=== PATIENT | female | born 1970 | race Caucasian/White ===

== ENCOUNTER 2017-01-28 20:06 | Emergency (ER) | payer BC ==
[2017-01-28] MEDS ORDERED: Ketorolac 60 MG/2 ML SDV IM ONE (20:44)
[2017-01-28] MEDS ORDERED: Cyclobenzaprine 10 MG Tab PO ONE (20:44)
[2017-01-28] MEDS ORDERED: HYDROmorphone 1 MG/ML Syringe IM ONE (20:44)
--- NOTE | 2017-01-28 20:49 | EDM.PDOC ---
ED HPI GENERAL MEDICAL PROBLEM - General Chief Complaint: Back Pain or Injury Stated Complaint: BACK PAIN Time Seen by Provider: 01/28/17 20:35 Source of Information: Reports: Patient History Limitations: Reports: No Limitations - History of Present Illness INITIAL COMMENTS - FREE TEXT/NARRATIVE: Patient is a 46-year-old female who presents to the ED complaining of bilateral low back pain that started this past Sunday after picking up clothes off the floor. Patient felt a pop when doing so and experienced immediate pain to her low back. She's been experiencing increasing pain with movement and palpation. She intermittently has pain radiating down the left posterior aspect of her leg. She has intermittent numbness/tingling. She has no prior history of back injury or similar symptoms. Denies saddle anesthesia or incontinence to urine or stool. She has been utilizing ibuprofen and Tylenol, hot/cold compresses, gentle stretching, with minimal relief. In addition she's also experiencing mild pain with urination. She denies any fever/chills, nausea/vomiting, abdominal pain, abnormal vaginal discharge, or any additional complaints. Duration: Constant, Getting Worse, Waxing/Waning Location: Reports: Back (Bilateral low back) Quality: Reports: Ache, Sharp, Stabbing, Throbbing Severity: Severe Improves with: Reports: Rest Worsens with: Reports: Other (Palpation), Movement Context: Reports: Activity Associated Symptoms: Reports: No Other Symptoms Treatments SOFTWARE SYSTEMS ARCHITECT: Reports: Other (see below) (see HPI) Other Treatments SOFTWARE SYSTEMS ARCHITECT: Motrin 1200 800mg Lower Back Pain Score (Numeric/FACES): 6 - Related Data Allergies Allergy/AdvReac Type Severity Reaction Status Date / Time tramadol HCl [From [facility]] Allergy Rash Verified 01/28/17 20:18 Home Meds: Home Meds Albuterol [Ventolin HFA] 1 puff INH ASDIRECTED PRN 11/09/14 [History] Lisinopril/Hydrochlorothiazide [Lisinopril-Hctz 10-12.5 mg Tab] 1 tab PO DAILY 11/09/14 [History] buPROPion [Wellbutrin XL] 150 mg PO DAILY 11/09/14 [History] Acetaminophen [Tylenol] 325 mg PO Q4H PRN #50 tab 11/11/14 [Rx] Ibuprofen [Motrin] 800 mg PO Q6H PRN 01/28/17 [History] Acetaminophen/HYDROcodone [Palouse 325-5 MG] 1 tab PO Q6H PRN #15 tablet 01/29/17 [Rx] Cyclobenzaprine [Flexeril] 5 mg PO TID PRN #15 tablet 01/29/17 [Rx] Past Medical History HEENT History: Reports: None Cardiovascular History: Reports: None Respiratory History: Reports: Asthma Genitourinary History: Reports: None Neurological History: Reports: None Psychiatric History: Reports: Anxiety Endocrine/Metabolic History: Reports: None Hematologic History: Reports: None Immunologic History: Reports: None Oncologic (Cancer) History: Reports: None Dermatologic History: Reports: None - Infectious Disease History Infectious Disease History: Reports: None - Past Surgical History GI Surgical History: Reports: Cholecystectomy Female Surgical History: Reports: Section, Hysterectomy Other Female Surgeries/Procedures: c-sections x 4 Musculoskeletal Surgical History: Reports: None Social & Family History - Family History Family Medical History: Noncontributory - Tobacco Use Smoking Status *Q: Current Every Day Smoker Years of Tobacco use: 30 Packs/Tins Daily: 1 Used Tobacco, but Quit: Yes - Caffeine Use Caffeine Use: Reports: Coffee - Alcohol Use Days Per Week of Alcohol Use: 2 Number of Drinks Per Day: 3 Total Drinks Per Week: 6 - Recreational Drug Use Recreational Drug Use: No ED ROS GENERAL - Review of Systems Review Of Systems: ROS reveals no pertinent complaints other than HPI. ED EXAM,LOWER BACK PAIN/INJURY - Physical Exam Exam: See Below Exam Limited By: No Limitations General Appearance: Alert, WD/WN, Moderate Distress Ears: Hearing Grossly Normal Nose: Normal Inspection Throat/Mouth: Normal Voice, No Airway Compromise Neck: Normal Inspection, Supple Respiratory/Chest: No Respiratory Distress, Lungs Clear, Normal Breath Sounds, No Accessory Muscle Use, Chest Non-Tender Cardiovascular: Normal Peripheral Pulses, Regular Rate, Rhythm GI/Abdominal: Normal Bowel Sounds, Soft, Non-Tender, No Organomegaly, No Distention Back Exam: Normal Inspection, Decreased Range of Motion, Vertebral Tenderness ( L4-L5 and into the low back bilaterally. Pain along the SI joint bilaterally.), Other (No bruising, swelling, deformity, ecchymosis noted.) Extremities: Normal Inspection, Non-Tender, No Pedal Edema, Normal Capillary Refill Neurological: Alert, Normal Mood/Affect, Normal Dorsiflexion, Normal Plantar Flexion, No Motor/Sensory Deficits, Oriented x 3, Difficulty Walking (Secondary to pain). No: Straight Leg Raise (L), Straight Leg Raise (R) Psychiatric: Normal Affect, Normal Mood Skin Exam: Warm, Dry, Intact, Normal Color Course - Vital Signs Last Recorded V/S: Last Vital Signs Temp 98.3 F 01/29/17 00:13 Pulse 61 01/29/17 00:13 Resp 14 01/29/17 00:13 BP 127/75 01/29/17 00:13 Pulse Ox 94 L 01/29/17 00:13 - Orders/Labs/Meds Labs: Laboratory Tests 01/28/17 Range/Units 20:55 Urine Color Yellow (Yellow) Urine Appearance Cloudy H (Clear) Urine pH 7.0 (5.0-8.0) Ur Specific [place] 1.025 (1.005-1.030) Urine Protein 2+ H (Negative) Urine Glucose (UA) Negative (Negative) Urine Ketones Negative (Negative) Urine Occult Blood Negative (Negative) Urine Nitrite Negative (Negative) Urine Bilirubin Negative (Negative) Urine Urobilinogen 1.0 (0.2-1.0) Ur Leukocyte Esterase Negative (Negative) Urine RBC Not seen (0-5) /hpf Urine WBC 0-5 (0-5) /hpf Ur Epithelial Cells 5-10 H (0-5) /hpf Amorphous Sediment Many H (NOT SEEN) /hpf Urine Bacteria Few (FEW) /hpf Hyaline Casts 0-5 (0-5) /lpf Urine Mucus Not seen (FEW) /hpf Meds: Medications Discontinued Medications Generic Name Dose Route Start Last Admin Trade Name Shana PRN Reason Stop Dose Admin Hydrocodone Bitart/Acetaminophen 1 tab 01/29/17 00:02 01/29/17 00:11 Palouse 325-5 Mg PO 01/29/17 00:03 1 tab ONETIME ONE Administration Cyclobenzaprine HCl 10 mg 01/28/17 20:44 01/28/17 20:59 Flexeril PO 01/28/17 20:45 10 mg ONETIME ONE Administration Hydromorphone HCl 1 mg 01/28/17 20:44 01/28/17 21:00 Dilaudid IM 01/28/17 20:45 1 mg ONETIME ONE Administration Ketorolac Tromethamine 60 mg 01/28/17 20:44 01/28/17 21:04 Toradol IM 01/28/17 20:45 60 mg ONETIME ONE Administration - Re-Assessments/Exams Free Text/Narrative Re-Assessment/Exam: Ordered Dilaudid 1 mg IM, Flexeril 10 mg by mouth, and Toradol 60 mg IM. Will obtain a UA with a history of burning sensation with urination. Reassessment patient's pain has slightly decreased with the above therapies. Will discharge patient home with instructions as documented. 1200 Reassessment, patient's pain has increased due to long wait when a critical patient arrived in the ED. Will order Palouse 5-325 mg one tab by mouth. Will discharge patient home with instructions as document. Departure - Departure Time of Disposition: 00:04 Disposition: Home, Self-Care 01 Condition: Good Clinical Impression: Bilateral low back pain with left-sided sciatica Qualifiers: Chronicity: acute Qualified Code(s): M54.42 - Lumbago with sciatica, left side - Discharge Information Prescriptions: Acetaminophen/HYDROcodone [Palouse 325-5 MG] 1 tab PO Q6H PRN #15 tablet PRN Reason: Pain (Severe 7-10) Cyclobenzaprine [Flexeril] 5 mg PO TID PRN #15 tablet PRN Reason: Pain Instructions: Back Injury Prevention, [id number], Pain Medicine Instructions , [id number], Back Pain, Adult, [id number], Muscle Strain, [id number] Referrals: Selene James PA [Primary Care Provider] - Forms: ED Department Discharge, Return to Work/School Form Additional Instructions: No driving this evening since receiving a sedative medication while in the ED. Take Flexeril one tab 3 times a day for muscle spasms and pain. Take ibuprofen and Tylenol and activity fashion. For severe pain not managed with the above therapies take Palouse one tab every 6 hours. Do not take Tylenol while taking the Palouse. Utilize warm compresses as needed to the affected area to reduce pain. Refrain from any activities that cause worsening pain. Follow-up with your primary care provider for reevaluation in the next 3-5 days. Physical therapy may be of benefit to you. In addition MRI may be required. Return to ED if you develop any new or worsening symptoms as discussed.
[2017-01-29] MEDS ORDERED: Acetaminophen/HYDROcodone 325-5 MG Tab PO ONE (00:02)
[2017-01-29 00:15] VITALS: BP 127/75
== END 2017-01-29 00:28 | disposition home or self-care (01) ==
LOC: JD.ED 20:06
DX: M54.42 Lumbago with sciatica, left side (principal); J45.909 Unspecified asthma, uncomplicated; F41.9 Anxiety disorder, unspecified; F17.210 Nicotine dependence, cigarettes, uncomplicated; Z88.5 Allergy status to narcotic agent; Z79.899 Other long term (current) drug therapy; Z90.49 Acquired absence of other specified parts of digestive tract; Z90.710 Acquired absence of both cervix and uterus
CPT/HCPCS: 81001; 96372; 99283; A9270; J1170; J1885

== ENCOUNTER 2019-10-05 10:53 | Emergency (ER) | payer BC ==
[2019-10-05 11:11] VITALS: BP 136/80; PULSE 72
--- NOTE | 2019-10-05 11:25 | EDM.PDOC ---
ED HPI GENERAL MEDICAL PROBLEM - General Chief Complaint: Back Pain or Injury Stated Complaint: LEFT LEG PAIN/BACK PAIN Time Seen by Provider: 10/05/19 11:25 - History of Present Illness INITIAL COMMENTS - FREE TEXT/NARRATIVE: 49-year-old female presents the emergency room with low back pain radiating down her left leg. About 3-1/2 weeks ago the patient fell on some ice landing on her bottom. Had some mild discomfort in her back following this but managed to go to work, she does a lot of lifting at her place of employment. Then because of a family emergency had to take a very long car ride to [place] then to [place] and then back here and this really seemed to aggravate it. She was seen at a clinic in [place] where she was started on Flexeril 5 mg 1 or 2 as needed she usually took 1 or 2 in the morning. She was also given a shot that sounds like Toradol that helped significantly with her discomfort she was given a course of prednisone. She has significant left-sided back spasm that radiates down her buttocks down to her knee and occasionally she has pain that goes into her foot. She has had no loss of bowel or bladder control she does have some dysuria but no frequency. She is had no loss of bowel or bladder control. Lower Back Pain Score (Numeric/FACES): 10 - Related Data Allergies Allergy/AdvReac Type Severity Reaction Status Date / Time tramadol HCl [From [facility]] Allergy Rash Verified 10/05/19 11:12 Home Meds: Home Meds Lisinopril/Hydrochlorothiazide [Lisinopril-Hctz 10-12.5 mg Tab] 1 tab PO DAILY 11/09/14 [History] buPROPion [Wellbutrin XL] 150 mg PO DAILY 11/09/14 [History] Cyclobenzaprine [Flexeril] 1 - 2 tab PO Q8H PRN 10/05/19 [History] Cyclobenzaprine [Flexeril] 10 mg PO TID #15 tab 10/05/19 [Rx] Nitrofurantoin Macrocrystal [Nitrofurantoin] 50 mg PO QID #28 capsule 10/05/19 [ Rx] predniSONE [Prednisone] 40 mg PO DAILY 10/05/19 [History] Past Medical History HEENT History: Reports: Allergic Rhinitis Cardiovascular History: Reports: Hypertension Respiratory History: Reports: Asthma Gastrointestinal History: Reports: Hepatitis, Other (See Below) Other Gastrointestinal History: elevated LFTs, Hepatitis B Genitourinary History: Reports: None FICTION AND NONFICTION AUTHOR History: Reports: Other (See Below) Other FICTION AND NONFICTION AUTHOR History: galactorrhea, dysmenorrhea, menorrhagia Musculoskeletal History: Reports: Arthritis, Back Pain, Chronic, Other (See Below) Other Musculoskeletal History: left wrist ganglion cyst, muscle spasms Neurological History: Reports: Headaches, Chronic Psychiatric History: Reports: Anxiety, Depression Endocrine/Metabolic History: Reports: Hypothyroidism, Obesity/BMI 30+ Hematologic History: Reports: None Immunologic History: Reports: None Oncologic (Cancer) History: Reports: None Dermatologic History: Reports: None - Infectious Disease History Infectious Disease History: Reports: Hepatitis B - Past Surgical History Head Surgeries/Procedures: Reports: None GI Surgical History: Reports: Cholecystectomy Female Surgical History: Reports: Section, Hysterectomy, Tubal Ligation Oncologic Surgical History: Reports: None Dermatological Surgical History: Reports: None Social & Family History - Family History Family Medical History: Noncontributory - Tobacco Use Smoking Status *Q: Current Every Day Smoker Years of Tobacco use: 35 Packs/Tins Daily: 0.2 - Caffeine Use Caffeine Use: Reports: Coffee, Soda - Recreational Drug Use Recreational Drug Use: No - Living Situation & Occupation Living situation: Reports: , with Spouse, with Family (1 teenager) Occupation: Unemployed ED ROS GENERAL - Review of Systems Review Of Systems: See Below Constitutional: Reports: No Symptoms HEENT: Reports: No Symptoms Respiratory: Reports: No Symptoms Cardiovascular: Reports: No Symptoms GI/Abdominal: Reports: No Symptoms : Reports: Dysuria Musculoskeletal: Reports: Back Pain, Other (See history of present illness) ED EXAM,LOWER BACK PAIN/INJURY - Physical Exam Exam: See Below Exam Limited By: No Limitations General Appearance: Alert, Moderate Distress (The patient just cannot get comfortable) Head: Atraumatic, Normocephalic Neck: Normal Inspection, Supple, Non-Tender, Full Range of Motion Respiratory/Chest: No Respiratory Distress, Lungs Clear, Normal Breath Sounds Cardiovascular: Regular Rate, Rhythm, No Edema, No Murmur GI/Abdominal: Normal Bowel Sounds, Soft, Non-Tender Back Exam: Muscle Spasm, Other (She has marked spasm in the left paraspinous muscles. This radiates down her buttocks and down the back of her thigh stops at her knee. Attempted straight leg raises however she had significant discomfort in her low back and buttocks and down to her knee in the posterior muscles by 30 degrees. This did not seem to make the pain worse in her foot.). No: CVA Tenderness (R), Vertebral Tenderness Course - Vital Signs Last Recorded V/S: Last Vital Signs Temp 36.0 C L 10/05/19 11:07 Pulse 72 10/05/19 11:07 Resp 16 10/05/19 11:07 BP 136/80 10/05/19 11:07 Pulse Ox 100 10/05/19 11:07 - Orders/Labs/Meds Orders: Active Orders 24 hr Category Date Time Status Abdomen wo Cont [CT] Stat Exams 10/05/19 13:17 Taken CULTURE URINE [RM] Stat Lab 10/05/19 12:08 Received Acetaminophen/HYDROcodone [Alto 325-5 MG] Med 10/05/19 15:58 Once 1 tab PO ONETIME ONE fentaNYL [Sublimaze] Med 10/05/19 13:22 Active 50 mcg IVPUSH Q5M PRN Medication Orders Hydrocodone Bitart/Acetaminophen (Alto 325-5 Mg) 1 tab PO ONETIME ONE Stop: 10/05/19 15:59 Fentanyl (Sublimaze) 50 mcg IVPUSH Q5M PRN PRN Reason: Pain Last Admin: 10/05/19 13:34 Dose: 50 mcg Labs: Laboratory Tests 10/05/19 10/05/19 10/05/19 Range/Units 12:08 13:29 13:29 WBC 12.74 H (3.98-10.04) K/mm3 RBC 5.09 (3.98-5.22) M/mm3 Hgb 16.0 H (11.2-15.7) gm/dl Hct 48.7 H (34.1-44.9) % MCV 95.7 H D (79.4-94.8) fl MCH 31.4 (25.6-32.2) pg MCHC 32.9 (32.2-35.5) g/dl RDW Std Deviation 46.3 (36.4-46.3) fL Plt Count 246 (182-369) K/mm3 MPV 11.7 (9.4-12.3) fl Neut % (Auto) 85.8 H (34.0-71.1) % Lymph % (Auto) 10.8 L (19.3-51.7) % Mcdowell % (Auto) 2.7 L (4.7-12.5) % Eos % (Auto) 0.2 L (0.7-5.8) Baso % (Auto) 0.3 (0.1-1.2) % Neut # (Auto) 10.93 H (1.56-6.13) K/mm3 Lymph # (Auto) 1.38 (1.18-3.74) K/mm3 Mcdowell # (Auto) 0.35 (0.24-0.36) K/mm3 Eos # (Auto) 0.02 L (0.04-0.36) K/mm3 Baso # (Auto) 0.04 (0.01-0.08) K/mm3 Manual Slide Review Normal smear Sodium 142 (136-145) mEq/L Potassium 3.9 (3.5-5.1) mEq/L Chloride 104 (98-107) mEq/L Carbon Dioxide 29 (21-32) mEq/L Anion Gap 12.9 (5-15) BUN 20 H (7-18) mg/dL Creatinine 1.3 H (0.55-1.02) mg/dL Est Cr Clr Drug Dosing 49.79 mL/min Estimated GFR (MDRD) 43 (>60) mL/min BUN/Creatinine Ratio 15.4 (14-18) Glucose 96 (74-106) mg/dL Calcium 9.7 (8.5-10.1) mg/dL Urine Color Yellow (Yellow) Urine Appearance Slt cloudy H (Clear) Urine pH 6.0 (5.0-8.0) Ur Specific [place] > or = 1.030 (1.005-1.030) Urine Protein 1+ H (Negative) Urine Glucose (UA) Negative (Negative) Urine Ketones Negative (Negative) Urine Occult Blood Trace-intact H (Negative) Urine Nitrite Positive H (Negative) Urine Bilirubin Negative (Negative) Urine Urobilinogen 0.2 (0.2-1.0) Ur Leukocyte Esterase Negative (Negative) Urine RBC 5-10 H (0-5) /hpf Urine WBC 0-5 (0-5) /hpf Ur Squamous Epith Cells 0-5 (0-5) /hpf Urine Bacteria Many H (FEW) /hpf Urine Mucus Rare (FEW) /hpf Meds: Medications Generic Name Dose Route Start Last Admin Trade Name Freq PRN Reason Stop Dose Admin Hydrocodone Bitart/Acetaminophen 1 tab 10/05/19 15:58 Alto 325-5 Mg PO 10/05/19 15:59 ONETIME ONE Fentanyl 50 mcg 10/05/19 13:22 10/05/19 13:34 Sublimaze IVPUSH 50 mcg Q5M PRN Administration Pain Discontinued Medications Generic Name Dose Route Start Last Admin Trade Name Freq PRN Reason Stop Dose Admin Hydrocodone Bitart/Acetaminophen 1 tab 10/05/19 13:12 Alto 325-5 Mg PO 10/05/19 13:13 ONETIME ONE Cyclobenzaprine HCl 10 mg 10/05/19 11:55 10/05/19 12:07 Flexeril PO 10/05/19 11:56 10 mg ONETIME ONE Administration Ketorolac Tromethamine 60 mg 10/05/19 12:01 10/05/19 12:06 Toradol IM 10/05/19 12:02 60 mg ONETIME ONE Administration - Re-Assessments/Exams Free Text/Narrative Re-Assessment/Exam: 10/05/19 13:28 Really has not had any relief from Toradol Flexeril. Her urinalysis shows some hematuria which is unusual she has had a hysterectomy in the past. At this point we will get a check some blood work and check a CT KUB. 10/05/19 16:00 CT KUB was negative for kidney stone or any other acute changes. Bone windows do not show any acute changes. She has some chronic changes which were seen in past imaging studies. At this point the patient will be discharged home Departure - Departure Time of Disposition: 16:00 Disposition: DC/Tflorna to [facility] Group [id number] Clinical Impression: Acute lumbosacral myofascial strain, Urinary tract infection - Discharge Information Prescriptions: Cyclobenzaprine [Flexeril] 10 mg PO TID #15 tab Nitrofurantoin Macrocrystal [Nitrofurantoin] 50 mg PO QID #28 capsule Referrals: PCP,None [Primary Care Provider] - Forms: ED Department Discharge, ED Return to Work/School Form Additional Instructions: Return to the emergency room with any questions problems or worsening symptoms. Take the muscle relaxant 10 mg of the cyclobenzaprine, as we discussed 3 times a day today and tomorrow then 1 at bedtime. With both the muscle relaxant, the cyclobenzaprine and the pain pill, hydrocodone allow 12 hours after taking these before driving or returning to work. With the bladder infection take the prescription antibiotic 1 4 times a day for 7 days. This is absorbed better if taken with food. Up with your regular healthcare provider later this week if needed and then again next week to see if you can go back to full activity at work. Sepsis Event Note - Evaluation Sepsis Screening Result: No Definite Risk - Focused Exam Vital Signs: Vital Signs Temp Pulse Resp BP Pulse Ox 10/05/19 11:07 36.0 C L 72 16 136/80 100 Date Exam was Performed: 10/05/19 Time Exam was Performed: 15:58 - My Orders Last 24 Hours: My Active Orders 10/05/19 12:08 CULTURE URINE [RM] Stat 10/05/19 13:17 Abdomen wo Cont [CT] Stat 10/05/19 13:22 fentaNYL [Sublimaze] 50 mcg IVPUSH Q5M PRN 10/05/19 15:58 Acetaminophen/HYDROcodone [Alto 325-5 MG] 1 tab PO ONETIME ONE - Assessment/Plan Last 24 Hours: My Active Orders 10/05/19 12:08 CULTURE URINE [RM] Stat 10/05/19 13:17 Abdomen wo Cont [CT] Stat 10/05/19 13:22 fentaNYL [Sublimaze] 50 mcg IVPUSH Q5M PRN 10/05/19 15:58 Acetaminophen/HYDROcodone [Alto 325-5 MG] 1 tab PO ONETIME ONE
[2019-10-05] MEDS ORDERED: Cyclobenzaprine 10 MG Tab PO ONE (11:55)
[2019-10-05] MEDS ORDERED: Ketorolac 60 MG/2 ML SDV IM ONE (12:01)
[2019-10-05] MEDS ORDERED: Acetaminophen/HYDROcodone 325-5 MG Tab PO ONE ×2 (13:12→15:58)
[2019-10-05] MEDS ORDERED: fentaNYL 100 MCG/2 ML SDV IVPUSH PRN (13:22)
[2019-10-05] MEDS ORDERED: Acetaminophen/HYDROcodone 325-5 MG Tab ONE (15:58)
[2019-10-05] MEDS ORDERED: Nitrofurantoin Monohydrate/Macrocrystalline 100 MG Cap PO ONE (16:02)
--- NOTE | 2019-10-06 10:29 | CT ---
CT abdomen and pelvis Technique: Multiple axial sections were obtained from above the dome of the diaphragm inferiorly through the pubic symphysis. Intravenous and oral contrast was not utilized. Study performed as a ureteral stone protocol. Comparison: Prior CT abdomen and pelvis exam of his 03/04/19 and MRI of . Kidneys show no abnormal calcifications. Cyst is noted within the left kidney measuring about 2.7 cm in size. No ureteral dilatation or ureteral stone is identified. No bladder calculi are seen. Visualized lung bases show nothing acute. Vague low density area is noted within the inferior right lobe of the liver which is stable from previous CT study and MRI. No additional abnormality is seen within the liver. Spleen appears within normal limits. Adrenal glands show no nodule. Pancreas is within normal limits. Surgical clips are seen from prior cholecystectomy. Aorta shows no aneurysm. No retroperitoneal adenopathy or mesenteric abnormalities are seen. No pelvic mass or adenopathy is noted. No free fluid or inflammatory change is appreciated. Appendix is seen and is felt to be normal in size. Bone window settings were reviewed which appear within normal limits for the patient's age. Nothing acute is appreciated within the visualized osseous structures. Impression: 1. Cyst within the left kidney. No renal calculi, ureteral dilatation or ureteral stone is seen. 2. Stable low density lesion within the lower right lobe of the liver when compared to prior MRI and CT study. 3. Nothing acute is appreciated on noncontrast CT study of the abdomen and pelvis. Diagnostic code #2 This report was dictated in Mountain Standard Time [facility]
== END 2019-10-05 16:31 | disposition home or self-care (01) ==
LOC: JD.ED 10:53
DX: S39.012A Strain of muscle, fascia and tendon of lower back, initial encounter (principal); N39.0 Urinary tract infection, site not specified; I10 Essential (primary) hypertension; F17.210 Nicotine dependence, cigarettes, uncomplicated; Z88.8 Allergy status to other drugs, medicaments and biological substances; Z79.899 Other long term (current) drug therapy
CPT/HCPCS: 36415; 74150; 80048; 81001; 85025; 87086; 87088; 87186; 96372; 96374; 99284; A9270; J1885; J3010; 99283

== ENCOUNTER 2019-10-10 03:13 | Emergency (ER) | payer BC ==
--- NOTE | 2019-10-10 03:28 | EDM.PDOC ---
ED HPI GENERAL MEDICAL PROBLEM - General Chief Complaint: Lower Extremity Injury/Pain Stated Complaint: PAIN LEFT SIDE AND DOWN LEG Time Seen by Provider: 10/10/19 03:28 Source of Information: Reports: Patient History Limitations: Reports: No Limitations - History of Present Illness INITIAL COMMENTS - FREE TEXT/NARRATIVE: 49-year-old female presents to the ED with gradually worsening severe pain left lower back rating down her left posterior leg in the distribution of lumbar 5 vertebra. She states about a month ago she slipped and fell on ice 3 times in a row within a period of 2 days. She landed hard on her buttock. For the first 3 days she did not think she was hurt all that bad and was able to go back to work. After that they were called away to [place] in order gone on a family emergency and were gone over for over 2-1/2 weeks. The trip there and back was "pure Hell" in terms that the pain in her back gradually worsened to the point that she could barely tolerate riding in the vehicle. She was seen through the ED [address] Peace noticed with sciatic in the left lower extremity and a urinary tract infection and she did receive antibiotic therapy. She had stopped in [place] and [place] to be seen by providers for her back receiving hydrocodone medication for pain relief and a course of prednisone which is sounded like 40 mg daily for 5 days in a row with no relief. Patient attempted to go to chiropractor yesterday for manipulation but was unsuccessful in fact she perhaps feels a little worse since manipulation was carried out. She has still got good control of her bowel and bladder. Unfortunately she has become constipated on the hydrocodone tablets. Is had no previous low back problems or pain or surgery. She has not slept for the last 3 days due to the intense of the pain and the hydrocodone is no longer working at all. He is also been taking Flexeril 10 mg every 8 hours with no relief. Really is no spasm type pain it is constant unrelenting burning pinching biting deep aching pain buttock and down the posterior aspect of her left leg to the foot Onset: Gradual Onset Date: 09/10/19 Duration: Week(s):, Getting Worse Location: Reports: Back (Low back pain on the left side with severe sciatica left leg in the distribution of L5 nerve root.) Quality: Reports: Ache, Burning, Stabbing, Throbbing, Other (Lancinating , shooting and unrelenting constant pain) Severity: Severe (9-10) Improves with: Reports: None Worsens with: Reports: Other (Patient has been crawling around the house because she cannot walk or put weight on her right leg.) Context: Reports: Trauma (Slipped and fell on the ice about a month ago 2 or 3 times within a period of 2 days landing hard on her buttocks.). Denies: Activity, Exercise, Lifting, Sick Contact Associated Symptoms: Reports: No Other Symptoms Treatments BUNG REMOVER: Reports: Other (see below) (Hydrocodone 5/325 mg tablets and Flexeril 10 mg 3 times daily as needed) Left Leg Pain Score (Numeric/FACES): 7 - Related Data Allergies Allergy/AdvReac Type Severity Reaction Status Date / Time tramadol HCl [From [facility]] Allergy Rash Verified 10/10/19 03:23 Home Meds: Home Meds Lisinopril/Hydrochlorothiazide [Lisinopril-Hctz 10-12.5 mg Tab] 1 tab PO DAILY 11/09/14 [History] buPROPion [Wellbutrin XL] 150 mg PO DAILY 11/09/14 [History] Cyclobenzaprine [Flexeril] 10 mg PO TID #15 tab 10/05/19 [Rx] Nitrofurantoin Macrocrystal [Nitrofurantoin] 50 mg PO QID #28 capsule 10/05/19 [ Rx] Acetaminophen/HYDROcodone [[place] 325-5 MG] 1 tab PO Q6H PRN 10/10/19 [History] Diclofenac Sodium [Voltaren] 75 mg PO BIDMEALS #20 tab.cr 10/10/19 [Rx] Gabapentin [Neurontin] 100 mg PO TID #30 cap 10/10/19 [Rx] oxyCODONE HCl/Acetaminophen [Percocet 10-325 mg Tablet] 1 each PO Q4H PRN #36 tablet 10/10/19 [Rx] Past Medical History HEENT History: Reports: Allergic Rhinitis Cardiovascular History: Reports: Hypertension Respiratory History: Reports: Asthma Gastrointestinal History: Reports: Hepatitis, Other (See Below) Other Gastrointestinal History: elevated LFTs, Hepatitis B Genitourinary History: Reports: None DIRECTOR PROJECT MANAGEMENT History: Reports: Other (See Below) Other DIRECTOR PROJECT MANAGEMENT History: galactorrhea, dysmenorrhea, menorrhagia Musculoskeletal History: Reports: Arthritis, Back Pain, Chronic, Other (See Below) Other Musculoskeletal History: left wrist ganglion cyst, muscle spasms Neurological History: Reports: Headaches, Chronic Psychiatric History: Reports: Anxiety, Depression Endocrine/Metabolic History: Reports: Hypothyroidism, Obesity/BMI 30+ Hematologic History: Reports: None Immunologic History: Reports: None Oncologic (Cancer) History: Reports: None Dermatologic History: Reports: None - Infectious Disease History Infectious Disease History: Reports: Hepatitis B - Past Surgical History Head Surgeries/Procedures: Reports: None GI Surgical History: Reports: Cholecystectomy Female Surgical History: Reports: Section, Hysterectomy, Tubal Ligation Oncologic Surgical History: Reports: None Dermatological Surgical History: Reports: None Social & Family History - Family History Family Medical History: Noncontributory - Caffeine Use Caffeine Use: Reports: Coffee, Soda - Living Situation & Occupation Living situation: Reports: , with Spouse, with Family (1 teenager) Occupation: Unemployed Review of Systems - Review of Systems Review Of Systems: See Below Constitutional: Reports: Weakness Eyes: Reports: No Symptoms Ears: Reports: No Symptoms Nose: Reports: No Symptoms Mouth/Throat: Reports: No Symptoms Respiratory: Reports: No Symptoms Cardiovascular: Reports: No Symptoms GI/Abdominal: Reports: Constipation (Being on the hydrocodone tablets), Decreased Appetite, Nausea Genitourinary: Reports: No Symptoms Musculoskeletal: Reports: Back Pain (Severe left lower back pain) Skin: Reports: No Symptoms Neurological: Reports: Difficulty Walking (Has to crawl around the house because she cannot walk. She crawls up 3 flights of stairs to get to bed.), Gait Disturbance Psychiatric: Reports: No Symptoms ED EXAM, GENERAL - Physical Exam Exam: See Below Exam Limited By: No Limitations General Appearance: Alert, Severe Distress, Other (Patient looks very tired as she is not been able to sleep for multiple days. Temperature is 36.3 pulse 97 and sinus respiratory is 18 pulse ox 99% on room air BP elevated at 136/117 although this is likely not correct as the pulse pressure is too close together) Eye Exam: Bilateral Eye: Normal Inspection (No scleral icterus or blepharal pallor.) Respiratory/Chest: No Respiratory Distress, Lungs Clear, Normal Breath Sounds, No Accessory Muscle Use, Chest Non-Tender Cardiovascular: Normal Peripheral Pulses, Regular Rate, Rhythm, No Edema, No Gallop, No Murmur, No Rub Peripheral Pulses: 3+: Posterior Tibial (L), Posterior Tibial (R), Dorsalis Pedis (L), Dorsalis Pedis (R) GI/Abdominal: Normal Bowel Sounds, Non-Tender, No Organomegaly, No Distention, No Abnormal Bruit, No Mass Back Exam: Normal Inspection, Decreased Range of Motion, Paraspinal Tenderness ( No significant paraspinal muscle spasm identified. There is mild paraspinal muscle tenderness at lumbar 3 4 and 5 on the left side but again very minimal. Pain is much deeper), Other. No: Full Range of Motion, CVA Tenderness (L), CVA Tenderness (R), Muscle Spasm Extremities: Normal Inspection, Other. No: Normal Range of Motion, Non-Tender Neurological: Alert, Oriented, CN II-XII Intact, Normal Cognition, Abnormal Gait , Other (She has a positive bowstring sign on lifting her right leg and could not make 30 degrees on the left side without severe sciatica.). No: Normal Gait (He is limping and cannot bear weight on the left side.) Psychiatric: Depressed Mood, Flat Affect, Tearful, Other (He is in a lot of pain.) Skin Exam: Warm, Dry, Intact, Normal Color, No Rash Course - Vital Signs Last Recorded V/S: Last Vital Signs Temp 36.3 C 10/10/19 03:20 Pulse 97 10/10/19 03:20 Resp 18 10/10/19 03:20 BP 136/117 H 10/10/19 03:20 Pulse Ox 99 10/10/19 03:20 - Orders/Labs/Meds Orders: Active Orders 24 hr Category Date Time Status Durable Medical Equipment for Discharge [DME for Oth 10/10/19 03:56 Ordered Discharge] [COMM] Stat Meds: Medications Discontinued Medications Generic Name Dose Route Start Last Admin Trade Name Freq PRN Reason Stop Dose Admin Hydromorphone HCl 1.5 mg 10/10/19 03:41 10/10/19 03:47 Dilaudid IM 10/10/19 03:42 1.5 mg ONETIME ONE Administration Promethazine HCl 25 mg 10/10/19 03:41 10/10/19 03:47 Phenergan IM 10/10/19 03:42 25 mg ONETIME ONE Administration - Radiology Interpretation Free Text/Narrative:: 49-year-old female presents to the ED with her due to gradually worsening severe pain in the posterior left hip buttock and down the left leg in the distribution of the lumbar V nerve root. Patient states about a month ago she slipped and fell in the ice 2 or 3 times in a row and landed hard on her buttocks and a period of 2 days. She did not think that she was hurt all that bad was able to go to work. Shortly after that they were called out to [place] and [place] due to family emergency and during the long trip she just started to develop increasing left lower back pain and pain into the left buttock. This has progressed now to radiation of pain all the way down her leg over the last 2 weeks. She has stopped along the way and seen various providers and she did have a short course of prednisone provided provided 2 weeks ago and hydrocodone 5/325 mg tablets which seem to help initially but no longer helping. She has not slept at all for the last 3 days due to the intensity of the pain. I.e. she is getting worse. She has not lost control of her bowel or bladder. She is developed constipation secondary to the hydrocodone tablets. Examination shows a positive bowstring sign with lifting the right leg and she can only make 30 degrees of straight leg raise on the left side without making the sciatica much worse. Clinically she has significant nerve root entrapment at the L5 nerve root on the left side. Plan she will be given 1.5 mg of Dilaudid IM and Phenergan 25 mg IM to give her some relief of pain and hopefully some sleep tonight. Pain medication will be increased to Percocet 10/325 mg 1 tablet every 4 hours for pain relief. 36 tablets provided. Neurontin 100 mg 3 times daily spaced about 8 hours apart to try and help relieve sciatica pain. Voltaren 75 mg twice daily for the next 10 days also in hopes of relieving some of her pain. I will get her booked for an MRI of her lumbar spine either later today or first thing Sunday. She has plans to follow-up with Lissett Johnson in the orthopedic surgical department and tentatively can have this done as soon as the MRI is complete and she can direct further care to neurosurgery for further evaluation and management. I feel the patient is unsafe to try and walk without the aid of a gait aid and she did given and accepted a roller walker which was provided to the durable [employer] in the ED tonight. Departure - Departure Time of Disposition: 03:47 Disposition: Home, Self-Care 01 Condition: Fair Clinical Impression: Low back pain with left-sided sciatica Qualifiers: Chronicity: acute Back pain laterality: left Qualified Code(s): M54.42 - Lumbago with sciatica, left side - Discharge Information *PRESCRIPTION DRUG MONITORING PROGRAM REVIEWED*: Not Applicable *COPY OF PRESCRIPTION DRUG MONITORING REPORT IN PATIENT ROS: Not Applicable Prescriptions: Diclofenac Sodium [Voltaren] 75 mg PO BIDMEALS #20 tab.cr Gabapentin [Neurontin] 100 mg PO TID #30 cap oxyCODONE HCl/Acetaminophen [Percocet 10-325 mg Tablet] 1 each PO Q4H PRN #36 tablet PRN Reason: sciatica Instructions: Sciatica Referrals: Lissett Johnson PA-C [Primary Care Provider] - Forms: ED Department Discharge Additional Instructions: Evaluation in the emergency room this morning in regards to unrelenting pain in the posterior aspect of the left buttock rating down the left leg compatible with sciatica. Fall perhaps a month ago on 2 or 3 occasions landing hard on your buttocks seem to precipitate this type of pain. It has gradually worsened over the ensuing weeks. Clinically you have a herniated disc likely at the lumbar 4 level in your lower back. I will have you booked for an MRI of your lower back hopefully later today in x-ray department will call you with the date and time either for today or Sunday to confirm the diagnosis. Follow-up with Lissett Johnson as planned so that she can direct care to a neurosurgeon in [place]. In the meantime you received an injection of Dilaudid 1.5 mg with Phenergan 25 mg intramuscularly in the emergency room to relieve acute severe pains and she have not slept for several days. Start working 45 to 60 minutes and hopefully will reduce some sleep for period of time. Suggest MiraLAX powder 17 g or 1 scoop every single day while on stronger pain pills as they all cause constipation. New pain pills to be Percocet 10/325 mg 1 tablet every 4 hours as needed for relief of pain. Also added Voltaren 75 mg tablet twice daily with food for the next 10 days to try and help reduce pain and inflammation of the nerve root that is impinged. Also Neurontin 100 mg 3 times daily spaced ideally 8 hours apart to try and reduce nerve pain in your buttock and leg. Note the combination of Neurontin and pain pills can cause quite significant drowsiness and so be very careful when up and about after taking these medications to prevent a fall. Would suggest use of a walker around the house to facilitate mobility and hopefully prevent a fall. Sepsis Event Note - Evaluation Sepsis Screening Result: No Definite Risk - Focused Exam Vital Signs: Vital Signs Temp Pulse Resp BP Pulse Ox 10/10/19 03:20 36.3 C 97 18 136/117 H 99 Date Exam was Performed: 10/10/19 Time Exam was Performed: 03:57 - My Orders Last 24 Hours: My Active Orders 10/10/19 03:56 Durable Medical Equipment for Discharge [DME for Discharge] [COMM] Stat - Assessment/Plan Last 24 Hours: My Active Orders 10/10/19 03:56 Durable Medical Equipment for Discharge [DME for Discharge] [COMM] Stat
[2019-10-10] MEDS ORDERED: HYDROmorphone 1 MG/ML Syringe IM ONE (03:41)
[2019-10-10] MEDS ORDERED: Promethazine 25 MG/ML SDV IM ONE (03:41)
[2019-10-10 04:19] VITALS: BP 136/76; PULSE 99
== END 2019-10-10 04:10 | disposition home or self-care (01) ==
LOC: JD.ED 03:13
DX: M54.42 Lumbago with sciatica, left side (principal); I10 Essential (primary) hypertension; J45.909 Unspecified asthma, uncomplicated; F41.9 Anxiety disorder, unspecified; F32.9 Major depressive disorder, single episode, unspecified; E03.9 Hypothyroidism, unspecified; E66.9 Obesity, unspecified; Z88.5 Allergy status to narcotic agent; Z79.899 Other long term (current) drug therapy; Z68.26 Body mass index [BMI] 26.0-26.9, adult
CPT/HCPCS: 96372; 99283; J1170; J2550

== ENCOUNTER 2019-10-13 13:19 | Emergency (ER) | payer BC ==
[2019-10-13 13:30] VITALS: BP 136/81; PULSE 88
--- NOTE | 2019-10-13 13:56 | EDM.PDOC ---
ED HPI GENERAL MEDICAL PROBLEM - General Chief Complaint: Back Pain or Injury Stated Complaint: BACK PAIN/LEG NUMB Time Seen by Provider: 10/13/19 13:33 Lower Back Pain Score (Numeric/FACES): 7 - Related Data Allergies Allergy/AdvReac Type Severity Reaction Status Date / Time tramadol HCl [From [facility]] Allergy Rash Verified 10/10/19 03:23 Home Meds: Home Meds Lisinopril/Hydrochlorothiazide [Lisinopril-Hctz 10-12.5 mg Tab] 1 tab PO DAILY 11/09/14 [History] buPROPion [Wellbutrin XL] 150 mg PO DAILY 11/09/14 [History] Cyclobenzaprine [Flexeril] 10 mg PO TID #15 tab 10/05/19 [Rx] Nitrofurantoin Macrocrystal [Nitrofurantoin] 50 mg PO QID #28 capsule 10/05/19 [ Rx] Acetaminophen/HYDROcodone [[place] 325-5 MG] 1 tab PO Q6H PRN 10/10/19 [History] Diclofenac Sodium [Voltaren] 75 mg PO BIDMEALS #20 tab.cr 10/10/19 [Rx] Gabapentin [Neurontin] 100 mg PO TID #30 cap 10/10/19 [Rx] oxyCODONE HCl/Acetaminophen [Percocet 10-325 mg Tablet] 1 each PO Q4H PRN #36 tablet 10/10/19 [Rx] Past Medical History HEENT History: Reports: Allergic Rhinitis Cardiovascular History: Reports: Hypertension Respiratory History: Reports: Asthma Gastrointestinal History: Reports: Hepatitis, Other (See Below) Other Gastrointestinal History: elevated LFTs, Hepatitis B Genitourinary History: Reports: None HAND COOPER HELPER History: Reports: Other (See Below) Other HAND COOPER HELPER History: galactorrhea, dysmenorrhea, menorrhagia Musculoskeletal History: Reports: Arthritis, Back Pain, Chronic, Other (See Below) Other Musculoskeletal History: left wrist ganglion cyst, muscle spasms Neurological History: Reports: Headaches, Chronic Psychiatric History: Reports: Anxiety, Depression Endocrine/Metabolic History: Reports: Hypothyroidism, Obesity/BMI 30+ Hematologic History: Reports: None Immunologic History: Reports: None Oncologic (Cancer) History: Reports: None Dermatologic History: Reports: None - Infectious Disease History Infectious Disease History: Reports: Hepatitis B - Past Surgical History Head Surgeries/Procedures: Reports: None GI Surgical History: Reports: Cholecystectomy Female Surgical History: Reports: Section, Hysterectomy, Tubal Ligation Oncologic Surgical History: Reports: None Dermatological Surgical History: Reports: None Social & Family History - Family History Family Medical History: Noncontributory - Tobacco Use Smoking Status *Q: Current Every Day Smoker Years of Tobacco use: 35 Packs/Tins Daily: 0.5 - Caffeine Use Caffeine Use: Reports: Coffee - Recreational Drug Use Recreational Drug Use: No - Living Situation & Occupation Living situation: Reports: , with Spouse, with Family (1 teenager) Occupation: Unemployed ED ROS GENERAL - Review of Systems Review Of Systems: See Below ED EXAM,LOWER BACK PAIN/INJURY - Physical Exam Exam: See Below Course - Vital Signs Last Recorded V/S: Last Vital Signs Temp 97.9 F 10/13/19 13:26 Pulse 88 10/13/19 13:26 Resp 16 10/13/19 13:26 BP 136/81 10/13/19 13:26 Pulse Ox 99 10/13/19 13:26 - Orders/Labs/Meds Orders: Active Orders 24 hr Category Date Time Status Insert Swift Catheter [Insert Urinary Catheter] [OM.PC] Care 10/13/19 16:11 Ordered Stat Urinary Catheter Assessment [RC] ASDIRECTED Care 10/13/19 16:11 Active Meds: Medications Discontinued Medications Generic Name Dose Route Start Last Admin Trade Name Shana PRN Reason Stop Dose Admin Hydromorphone HCl 1 mg 10/13/19 14:29 10/13/19 14:44 Dilaudid IM 10/13/19 14:30 1 mg ONETIME ONE Administration - Re-Assessments/Exams Free Text/Narrative Re-Assessment/Exam: 10/13/19 16:03 Initial hx and exam was done by THERON Davila student. I agree with his hx and exam as documented. I have also interviewed and examined patient. I have reviewed the MRI report of MRI done this AM. Does show a large disc herniation seen posteriorly to the left of midline and possible adjacent free fragment seen posteriorly and inferiorly of the disc herniation. She did void shortly after arrival to ED and when we did check bladder scan a short time later she had 650 mils of estimated urinary retention on bladder scan. Did place a Swift catheter and did get that much out and more. I have discussed these symptoms and findings along with history of progressive sciatica, pain, numbness and tingling left lower extremity past several weeks with Dr. Dangelo Neurosurgeon on-call for [facility]. He recommends leaving the Swift catheter in, he will see her at his medical clinic Sunday morning 2 days from now. Discharge instructions as documented. Departure - Departure Time of Disposition: 16:27 Disposition: Home, Self-Care 01 Condition: Fair Clinical Impression: Urinary retention Sciatica Qualifiers: Laterality: left Qualified Code(s): M54.32 - Sciatica, left side - Discharge Information Instructions: Sciatica, [id number], Acute Urinary Retention, Female, Easy-to- Read Referrals: Kathy Cochran [employer] [employer] [Primary Care Provider] - Forms: ED Department Discharge Additional Instructions: Tylenol for mild to moderate discomfort or Percocet previously prescribed if needed for more severe discomfort. Swift catheter with leg bag. Use appropriate precautions to try prevent an ascending infection. Continue to drink plenty of water to maintain hydration. See Dr. Dangelo NeurosurgeGilmer bradford Sunday morning any time after 8 AM. His office is in the [employer] [facility]. He will see you as a walk in patient once you get to the clinic. Sepsis Event Note - Evaluation Sepsis Screening Result: No Definite Risk - Focused Exam Vital Signs: Vital Signs Temp Pulse Resp BP Pulse Ox 10/13/19 13:26 97.9 F 88 16 136/81 99 Date Exam was Performed: 10/13/19 Time Exam was Performed: 16:35 - My Orders Last 24 Hours: My Active Orders 10/13/19 16:11 Insert Swift Catheter [Insert Urinary Catheter] [OM.PC] Stat Urinary Catheter Assessment [RC] ASDIRECTED - Assessment/Plan Last 24 Hours: My Active Orders 10/13/19 16:11 Insert Swift Catheter [Insert Urinary Catheter] [OM.PC] Stat Urinary Catheter Assessment [RC] ASDIRECTED
--- NOTE | 2019-10-13 14:20 | EDM.PDOC ---
<King Zheng - Last Filed: 10/13/19 14:44> ED HPI GENERAL MEDICAL PROBLEM - General Chief Complaint: Back Pain or Injury Stated Complaint: BACK PAIN/LEG NUMB Time Seen by Provider: 10/13/19 13:33 Source of Information: Reports: Patient History Limitations: Reports: No Limitations - History of Present Illness INITIAL COMMENTS - FREE TEXT/NARRATIVE: Judd is presenting today for an exacerbation of her chronic sciatica pain. She states that she had come to the ER last week on 10/10/2019 for the same reason and Dr. Marrero had given her Gabapentin, Percoset, and an injection to alleviate her pain as well as ordering an outpatient MRI scan of her lower spine to determine a source for her pain. She reports that today she came in because yesterday she started noticing numbness and burning into her lower legs , especially the left leg that gave her a sense of "losing where her leg was at ". After completing her MRI this morning she contacted her PCP and Judd states they told her to come to the ER due to her issue of urinary retention. She also reports having numbness into her left buttocks even when standing, and that it makes it difficult for her to stand up straight. Additionally she reports having mild muscle weakness down both sides, but that it mostly feels like a left sided weakness. She also reports the sensation of needing to urinate but not being able to when she tries to go, and if she gets anything out it is just a little. She denies any upper limb limb involvement, loss of bowel control, dyspnea, chest pain, headache, visual changes, or stomach upset. Further, her MRI report from Dr. Navarro found there to be disc space narrowing at L5-S1 with large disc herniation to the left of midline, with this herniation pushing the thecal sac to the right. In addition, the MRI found no evidence of abnormal signal or masses near the conus medullaris or cauda equina. Lower Back Pain Score (Numeric/FACES): 7 - Related Data Allergies Allergy/AdvReac Type Severity Reaction Status Date / Time tramadol HCl [From [facility]] Allergy Rash Verified 10/10/19 03:23 Home Meds: Home Meds Lisinopril/Hydrochlorothiazide [Lisinopril-Hctz 10-12.5 mg Tab] 1 tab PO DAILY 11/09/14 [History] buPROPion [Wellbutrin XL] 150 mg PO DAILY 11/09/14 [History] Cyclobenzaprine [Flexeril] 10 mg PO TID #15 tab 10/05/19 [Rx] Nitrofurantoin Macrocrystal [Nitrofurantoin] 50 mg PO QID #28 capsule 10/05/19 [ Rx] Acetaminophen/HYDROcodone [Beason 325-5 MG] 1 tab PO Q6H PRN 10/10/19 [History] Diclofenac Sodium [Voltaren] 75 mg PO BIDMEALS #20 tab.cr 10/10/19 [Rx] Gabapentin [Neurontin] 100 mg PO TID #30 cap 10/10/19 [Rx] oxyCODONE HCl/Acetaminophen [Percocet 10-325 mg Tablet] 1 each PO Q4H PRN #36 tablet 10/10/19 [Rx] Past Medical History HEENT History: Reports: Allergic Rhinitis Cardiovascular History: Reports: Hypertension Respiratory History: Reports: Asthma Gastrointestinal History: Reports: Hepatitis, Other (See Below) Other Gastrointestinal History: elevated LFTs, Hepatitis B Genitourinary History: Reports: None WOOD GOUGER History: Reports: Other (See Below) Other WOOD GOUGER History: galactorrhea, dysmenorrhea, menorrhagia Musculoskeletal History: Reports: Arthritis, Back Pain, Chronic, Other (See Below) Other Musculoskeletal History: left wrist ganglion cyst, muscle spasms Neurological History: Reports: Headaches, Chronic Psychiatric History: Reports: Anxiety, Depression Endocrine/Metabolic History: Reports: Hypothyroidism, Obesity/BMI 30+ Hematologic History: Reports: None Immunologic History: Reports: None Oncologic (Cancer) History: Reports: None Dermatologic History: Reports: None - Infectious Disease History Infectious Disease History: Reports: Hepatitis B - Past Surgical History Head Surgeries/Procedures: Reports: None GI Surgical History: Reports: Cholecystectomy Female Surgical History: Reports: Section, Hysterectomy, Tubal Ligation Oncologic Surgical History: Reports: None Dermatological Surgical History: Reports: None Social & Family History - Family History Family Medical History: Noncontributory - Tobacco Use Smoking Status *Q: Current Every Day Smoker Years of Tobacco use: 35 Packs/Tins Daily: 0.5 - Caffeine Use Caffeine Use: Reports: Coffee - Recreational Drug Use Recreational Drug Use: No - Living Situation & Occupation Living situation: Reports: , with Spouse, with Family (1 teenager) Occupation: Unemployed ED ROS GENERAL - Review of Systems Constitutional: Reports: Weakness HEENT: Reports: No Symptoms Respiratory: Reports: No Symptoms Cardiovascular: Reports: No Symptoms Endocrine: Reports: No Symptoms GI/Abdominal: Reports: No Symptoms : Reports: Urgency, Urinary Retention Musculoskeletal: Reports: Back Pain, Leg Pain, Muscle Pain Skin: Reports: No Symptoms Neurological: Reports: Numbness, Paresthesia, Tingling, Weakness Psychiatric: Reports: No Symptoms Hematologic/Lymphatic: Reports: No Symptoms Immunologic: Reports: No Symptoms ED EXAM,LOWER BACK PAIN/INJURY - Physical Exam Exam: See Below Exam Limited By: Physical Impairment (Back pain causing pt exam to be restricted in movement) General Appearance: Alert, WD/WN, No Apparent Distress Head: Atraumatic, Normocephalic Respiratory/Chest: No Respiratory Distress, Lungs Clear, Normal Breath Sounds Cardiovascular: Normal Peripheral Pulses, Regular Rate, Rhythm, No Edema GI/Abdominal: Normal Bowel Sounds, Soft, Non-Tender, No Distention, No Abnormal Bruit, No Mass, Other (Suprapubic tenderness on palpation of patients bladder ) (Female) Exam: Deferred Rectal (Female) Exam: Normal Exam, Normal Rectal Tone Back Exam: Decreased Range of Motion (Due to chronic sciatica ), Paraspinal Tenderness, Vertebral Tenderness Extremities: No Pedal Edema, Leg Pain (Mostly down the left leg and into foot ) , Limited Range of Motion (Her back pain causes her troubles with hip extension and knee flexion in both legs), Other (decreased sensation across left lateral leg and left dorsal and plantar aspects ) Neurological: Alert, Normal Mood/Affect, Normal Dorsiflexion, CN II-XII Intact, Normal Plantar Flexion, Normal Reflexes, Oriented x 3, Abnormal Gait (Pt walking in slight spinal flexion due to pain ), Abnormal Sensation (Across left lower limb and into dorsal and laterla aspects of foot ), Straight Leg Raise (L ) (Limited - triggers her back pain), Straight Leg Raise (R) (Limited - triggers her back pain) DTR - Lower Extremities: 2+: Knee (R) (Equal ), Knee (L) (Equal ) Psychiatric: Normal Affect, Anxious (Seems nervous about her pain increasing so rapidly and not being able to urinate ) Skin Exam: Warm, Dry, Intact, Normal Color, No Rash Lymphatic: No Adenopathy Course - Vital Signs Last Recorded V/S: Last Vital Signs Temp 97.9 F 10/13/19 13:26 Pulse 88 10/13/19 13:26 Resp 16 10/13/19 13:26 BP 136/81 10/13/19 13:26 Pulse Ox 99 10/13/19 13:26 - Orders/Labs/Meds Orders: Active Orders 24 hr Category Date Time Status Insert Swift Catheter [Insert Urinary Catheter] [OM.PC] Care 10/13/19 16:11 Ordered Stat Urinary Catheter Assessment [RC] ASDIRECTED Care 10/13/19 16:11 Active Meds: Medications Discontinued Medications Generic Name Dose Route Start Last Admin Trade Name Freq PRN Reason Stop Dose Admin Hydromorphone HCl 1 mg 10/13/19 14:29 10/13/19 14:44 Dilaudid IM 10/13/19 14:30 1 mg ONETIME ONE Administration Departure - Departure Disposition: Home, Self-Care 01 Clinical Impression: Urinary retention Sciatica Qualifiers: Laterality: left Qualified Code(s): M54.32 - Sciatica, left side - Discharge Information Referrals: Kathy Cochran, [employer]B DEVELOPER [Primary Care Provider] - Forms: ED Department Discharge Additional Instructions: Tylenol for mild to moderate discomfort or Percocet previously prescribed if needed for more severe discomfort. Swift catheter with leg bag. Use appropriate precautions to try prevent an ascending infection. Continue to drink plenty of water to maintain hydration. See Dr. Dangelo, Neurosurgeon, [place] Sunday morning any time after 8 AM. His office is in the [facility]. He will see you as a walk in patient once you get to the clinic. Sepsis Event Note - Evaluation Sepsis Screening Result: No Definite Risk - Focused Exam Vital Signs: Vital Signs Temp Pulse Resp BP Pulse Ox 10/13/19 13:26 97.9 F 88 16 136/81 99 Date Exam was Performed: 10/13/19 Time Exam was Performed: 14:44 - My Orders Last 24 Hours: My Active Orders 10/13/19 16:11 Insert Swift Catheter [Insert Urinary Catheter] [OM.PC] Stat Urinary Catheter Assessment [RC] ASDIRECTED - Assessment/Plan Last 24 Hours: My Active Orders 10/13/19 16:11 Insert Swift Catheter [Insert Urinary Catheter] [OM.PC] Stat Urinary Catheter Assessment [RC] ASDIRECTED <Mateus Sanchez L - Last Filed: 10/13/19 16:35> ED ROS GENERAL - Review of Systems Review Of Systems: See Below Departure - Departure Time of Disposition: 16:34 Sepsis Event Note - Focused Exam Date Exam was Performed: 10/13/19 Time Exam was Performed: 16:34
[2019-10-13] MEDS ORDERED: HYDROmorphone 1 MG/ML Syringe IM ONE (14:29)
== END 2019-10-13 17:15 | disposition home or self-care (01) ==
LOC: JD.ED 13:19
DX: M54.42 Lumbago with sciatica, left side (principal); R33.9 Retention of urine, unspecified; I10 Essential (primary) hypertension; J45.909 Unspecified asthma, uncomplicated; F41.9 Anxiety disorder, unspecified; F32.9 Major depressive disorder, single episode, unspecified; E03.9 Hypothyroidism, unspecified; E66.9 Obesity, unspecified; F17.210 Nicotine dependence, cigarettes, uncomplicated; Z88.5 Allergy status to narcotic agent; Z79.899 Other long term (current) drug therapy; Z68.26 Body mass index [BMI] 26.0-26.9, adult
CPT/HCPCS: 51702; 96372; 99284; J1170

== ENCOUNTER 2019-10-20 17:47 | Emergency (ER) | payer BC ==
[2019-10-20 18:26] VITALS: BP 133/65; PULSE 74
--- NOTE | 2019-10-20 18:37 | EDM.PDOC ---
ED HPI GENERAL MEDICAL PROBLEM - General Chief Complaint: Genitourinary Problem Stated Complaint: CATHETER ISSUES Time Seen by Provider: 10/20/19 18:35 Source of Information: Reports: Patient, RN Notes Reviewed History Limitations: Reports: No Limitations - History of Present Illness INITIAL COMMENTS - FREE TEXT/NARRATIVE: Patient is a 49-year-old female who presents to the ED for Fonseca catheter problems. Patient states that she had back surgery this last , and had a catheter placed on Sunday due to urinary retention. Patient states that everything went well over the weekend, but over the course the day, she is noticing some increased leakage around the catheter, and notes that her bag is not filling up as fast as it normally does, she states she does feel a little bit of abdominal fullness as well. She is not noticing any bleeding or discomfort at the site of the catheter insertion. She is not complaining of any other issues. - Related Data Allergies Allergy/AdvReac Type Severity Reaction Status Date / Time tramadol HCl [From [facility]] Allergy Rash Verified 10/10/19 03:23 Home Meds: Home Meds Lisinopril/Hydrochlorothiazide [Lisinopril-Hctz 10-12.5 mg Tab] 1 tab PO DAILY 11/09/14 [History] buPROPion [Wellbutrin XL] 150 mg PO DAILY 11/09/14 [History] Diclofenac Sodium [Voltaren] 75 mg PO BIDMEALS #20 tab.cr 10/10/19 [Rx] Gabapentin [Neurontin] 100 mg PO TID #30 cap 10/10/19 [Rx] Acetaminophen/HYDROcodone [[place] 325-5 MG] 1 tab PO Q6H 10/20/19 [History] Past Medical History HEENT History: Reports: Allergic Rhinitis Cardiovascular History: Reports: Hypertension Respiratory History: Reports: Asthma Gastrointestinal History: Reports: Hepatitis, Other (See Below) Other Gastrointestinal History: elevated LFTs, Hepatitis B 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 FRAME BACK TENDER History: Reports: Other (See Below) Other TENTER FRAME BACK TENDER History: galactorrhea, dysmenorrhea, menorrhagia Musculoskeletal History: Reports: Arthritis, Back Pain, Chronic, Other (See Below) Other Musculoskeletal History: left wrist ganglion cyst, muscle spasms Neurological History: Reports: Headaches, Chronic Psychiatric History: Reports: Anxiety, Depression Endocrine/Metabolic History: Reports: Hypothyroidism, Obesity/BMI 30+ - Infectious Disease History Infectious Disease History: Reports: Hepatitis B - Past Surgical History GI Surgical History: Reports: Cholecystectomy Female Surgical History: Reports: Section, Hysterectomy, Tubal Ligation Musculoskeletal Surgical History: Reports: Other (See Below) (back surgery ) Social & Family History - Family History Family Medical History: Noncontributory - Tobacco Use Smoking Status *Q: Current Every Day Smoker Years of Tobacco use: 36 Packs/Tins Daily: 0.4 - Caffeine Use Caffeine Use: Reports: Coffee, Soda, Tea - Recreational Drug Use Recreational Drug Use: No - Living Situation & Occupation Living situation: Reports: , with Spouse, with Family (1 teenager) Occupation: Unemployed ED ROS GENERAL - Review of Systems Review Of Systems: Comprehensive ROS is negative, except as noted in HPI. ED EXAM, RENAL/ - Physical Exam Exam: See Below Exam Limited By: No Limitations General Appearance: Alert, WD/WN, No Apparent Distress Respiratory/Chest: No Respiratory Distress, Lungs Clear, Normal Breath Sounds, No Accessory Muscle Use, Chest Non-Tender Cardiovascular: Normal Peripheral Pulses, Regular Rate, Rhythm, No Murmur GI/Abdominal: Normal Bowel Sounds, Soft, Non-Tender, No Distention, No Mass (Female) Exam: Normal External Exam (With fonseca catheter in place) Neurological: Alert, Oriented, Normal Cognition, No Motor/Sensory Deficits Psychiatric: Normal Affect, Normal Mood Skin Exam: Warm, Dry, Intact, Normal Color, No Rash Course - Vital Signs Last Recorded V/S: Last Vital Signs Temp 97.6 F 10/20/19 18:24 Pulse 74 10/20/19 18:24 Resp 20 10/20/19 18:24 BP 133/65 10/20/19 18:24 Pulse Ox 95 10/20/19 18:24 - Re-Assessments/Exams Free Text/Narrative Re-Assessment/Exam: 10/20/19 19:04 Patient presents to the ED for problems with her Fonseca catheter, I did have nursing staff troubleshoot this, there is no fluid in the balloon, catheter is felt to be in an appropriate anatomical position, and is not plugged as this was irrigated with little difficulty. Patient will be discharged home with general recommendations and have a follow-up with her specialist on the as previously scheduled. Departure - Departure Time of Disposition: 19:05 Disposition: Home, Self-Care 01 Condition: Fair Clinical Impression: Fonseca catheter problem Qualifiers: Encounter type: initial encounter Qualified Code(s): T83.9XXA - Unspecified complication of genitourinary prosthetic device, implant and graft, initial encounter - Discharge Information *PRESCRIPTION DRUG MONITORING PROGRAM REVIEWED*: No *COPY OF PRESCRIPTION DRUG MONITORING REPORT IN PATIENT ROS: No Instructions: Indwelling Urinary Catheter Care, Adult Referrals: Kathy Cochran ASSET PROTECTION ASSOCIATE [Primary Care Provider] - Forms: ED Department Discharge Additional Instructions: You were evaluated in the ER regarding your Fonseca catheter issues. Troubleshooting was done to the catheter, and does appear to have an appropriate amount of fluid in the balloon, and anatomical position, and is not blocked at this time. As you are having a follow-up with your specialist on the , recommend that the Fonseca catheter stays in place, and you might want to think about wearing a small pad or panty liner for the feelings of dribbling, as there was nothing noted to be wrong with your catheter today. Please keep your appointment on the as previously scheduled for further evaluation and management. Please return to the ER at any time if symptoms should change or worsen. Sepsis Event Note - Evaluation Sepsis Screening Result: No Definite Risk - Focused Exam Vital Signs: Vital Signs Temp Pulse Resp BP Pulse Ox 10/20/19 18:24 97.6 F 74 20 133/65 95 Date Exam was Performed: 10/20/19 Time Exam was Performed: 18:55
== END 2019-10-20 19:15 | disposition home or self-care (01) ==
LOC: JD.ED 17:47
DX: T83.031A Leakage of indwelling urethral catheter, initial encounter (principal); I10 Essential (primary) hypertension; M19.90 Unspecified osteoarthritis, unspecified site; F41.9 Anxiety disorder, unspecified; F32.9 Major depressive disorder, single episode, unspecified; E66.9 Obesity, unspecified; Z68.26 Body mass index [BMI] 26.0-26.9, adult; F17.210 Nicotine dependence, cigarettes, uncomplicated
CPT/HCPCS: 99283

== ENCOUNTER 2021-06-09 12:04 | Emergency (ER) | payer BC ==
--- NOTE | 2021-06-09 13:11 | EDM.PDOC ---
ED HPI GENERAL MEDICAL PROBLEM - General Chief Complaint: Respiratory Problem Stated Complaint: CHEST CONGESTION Time Seen by Provider: 06/09/21 12:35 Source of Information: Reports: Patient History Limitations: Reports: No Limitations - History of Present Illness INITIAL COMMENTS - FREE TEXT/NARRATIVE: 51-year-old female presents the emergency department with complaints of subj ective fever, body aches, headache, sore throat, laryngitis, cough and shortness of breath. Per the patient reports the symptoms started 4 days ago. She has not had her Covid vaccine. She does admit being to 1/2 pack a day smoker for the past 30+ years however she states she quit 4 days ago when she developed the symptoms of Covid. She also states that her had a positive Covid test and repeat Covid test was negative. 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 SUPERVISOR: Reports: Other (see below) Other 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 SUPERVISOR: motrin Headache Pain Score (Numeric/FACES): 6 Chest Pain Score (Numeric/FACES): 7 Generalized Pain Score (Numeric/FACES): 4 - Related Data Allergies Allergy/AdvReac Type Severity Reaction Status Date / Time tramadol HCl [From Ultra] Allergy Rash Verified 10/10/19 03:23 Home Meds: Home Meds Lisinopril/Hydrochlorothiazide [Lisinopril-Hctz 10-12.5 mg Tab] 1 tab PO DAILY 11/09/14 [History] buPROPion [Wellbutrin XL] 150 mg PO DAILY 11/09/14 [History] Diclofenac Sodium [Voltaren] 75 mg PO BIDMEALS #20 tab.cr 10/10/19 [Rx] Gabapentin [Neurontin] 100 mg PO TID #30 cap 10/10/19 [Rx] Acetaminophen/HYDROcodone [[place] 325-5 MG] 1 tab PO Q6H 10/20/19 [History] Benzonatate [Tessalon Perle] 100 mg PO TID PRN #12 capsule 06/09/21 [Rx] Past Medical History HEENT History: Reports: Allergic Rhinitis Cardiovascular History: Reports: Hypertension Respiratory History: Reports: Asthma Gastrointestinal History: Reports: Hepatitis, Other (See Below) Other Gastrointestinal History: elevated LFTs, Hepatitis B Genitourinary History: Reports: None ARTIFICIAL CHERRY MAKER History: Reports: Other (See Below) Other ARTIFICIAL CHERRY MAKER History: galactorrhea, dysmenorrhea, menorrhagia Musculoskeletal History: Reports: Arthritis, Back Pain, Chronic, Other (See Below) Other Musculoskeletal History: left wrist ganglion cyst, muscle spasms Neurological History: Reports: Headaches, Chronic Psychiatric History: Reports: Anxiety, Depression Endocrine/Metabolic History: Reports: Hypothyroidism, Obesity/BMI 30+ Hematologic History: Reports: None Immunologic History: Reports: None Oncologic (Cancer) History: Reports: None Dermatologic History: Reports: None - Infectious Disease History Infectious Disease History: Reports: Hepatitis B - Past Surgical History Head Surgeries/Procedures: Reports: None HEENT Surgical History: Reports: None Cardiovascular Surgical History: Reports: None Respiratory Surgical History: Reports: None GI Surgical History: Reports: Cholecystectomy Female Surgical History: Reports: Section, Hysterectomy, Tubal Ligation Other Female Surgeries/Procedures: c-sections x 4 Endocrine Surgical History: Reports: None Neurological Surgical History: Reports: None Musculoskeletal Surgical History: Reports: Other (See Below) Oncologic Surgical History: Reports: None Dermatological Surgical History: Reports: None Social & Family History - Family History Family Medical History: No Pertinent Family History - Tobacco Use Tobacco Use Status *Q: Former Tobacco User Used Tobacco, but Quit: Yes Month/Year Tobacco Last Used: sunday - Caffeine Use Caffeine Use: Reports: Coffee, Soda - Recreational Drug Use Recreational Drug Use: No - Living Situation & Occupation Living situation: Reports: , with Spouse, with Family (1 teenager) Occupation: Unemployed ED ROS GENERAL - Review of Systems Review Of Systems: Comprehensive ROS is negative, except as noted in HPI. ED EXAM, GENERAL - Physical Exam Exam: See Below Exam Limited By: No Limitations General Appearance: Alert, WD/WN, Mild Distress Ears: Normal External Exam, Hearing Grossly Normal Nose: Normal Inspection Throat/Mouth: Normal Inspection, Normal Lips, No Airway Compromise. No: Normal Voice (Voice is hoarse sounding) Head: Atraumatic Neck: Normal Inspection, Supple Respiratory/Chest: No Respiratory Distress, No Accessory Muscle Use, Chest Non- Tender, Crackles (Bilaterally) Cardiovascular: Normal Peripheral Pulses, Regular Rate, Rhythm, No Edema, No Murmur Peripheral Pulses: 2+: Radial (L), Radial (R) GI/Abdominal: Normal Bowel Sounds, Soft, Non-Tender, No Distention (Female) Exam: Deferred Rectal (Female) Exam: Deferred Back Exam: Normal Inspection Extremities: Normal Inspection, Normal Range of Motion, Non-Tender, No Pedal Edema, Normal Capillary Refill Neurological: Alert, Oriented, Normal Cognition Psychiatric: Normal Affect, Normal Mood Skin Exam: Warm, Dry, Intact, Normal Color, No Rash Lymphatic: No Adenopathy Course - Vital Signs Text/Narrative:: As stated above, patient presents with numerous symptoms of Covid. Physical exam does reveal a hoarse sounding voice. Lung sounds with crackles noted bilaterally. She is hemodynamically stable and O2 saturations are 93 to 94% on room air. Will obtain a Covid swab as well as lab studies to include a CBC, CMP, magnesium, C-reactive protein, D-dimer and a chest x-ray. Last Recorded V/S: Last Vital Signs Temp 97.3 F 06/09/21 15:15 Pulse 60 06/09/21 15:15 Resp 20 06/09/21 15:15 BP 140/82 06/09/21 15:15 Pulse Ox 92 L 06/09/21 15:15 - Orders/Labs/Meds Orders: Active Orders 24 hr Category Date Time Status Vital Signs [RC] Q15M Care 06/09/21 14:27 Active EPINEPHrine [Adrenalin] Med 06/09/21 14:27 Active 0.3 mg IM ASDIRECTED PRN Famotidine [Pepcid] Med 06/09/21 14:27 Active 20 mg IVPUSH ASDIRECTED PRN Sodium Chloride 0.9% [Saline Flush] Med 06/09/21 14:30 Active 30 ml FLUSH ASDIRECTED diphenhydrAMINE [Benadryl] Med 06/09/21 14:27 Active 50 mg IVPUSH ASDIRECTED PRN methylPREDNISolone Sod Succ [Solu-MEDROL] Med 06/09/21 14:27 Active 125 mg IVPUSH ASDIRECTED PRN Medication Orders Diphenhydramine HCl (Diphenhydramine 50 Mg/Ml Sdv) 50 mg IVPUSH ASDIRECTED PRN PRN Reason: hypersensitivity reaction Epinephrine HCl (Epinephrine 1 Mg/Ml Sdv) 0.3 mg IM ASDIRECTED PRN PRN Reason: hypersensitivity reaction Famotidine (Famotidine 20 Mg/2 Ml Sdv) 20 mg IVPUSH ASDIRECTED PRN PRN Reason: hypersensitivity reaction Methylprednisolone Sodium Succinate (Methylprednisolone Sodium Succinate 125 Mg/2 Ml Sdv) 125 mg IVPUSH ASDIRECTED PRN PRN Reason: hypersensitivity reaction Sodium Chloride (Sodium Chloride 0.9% 10 Ml Syringe) 30 ml FLUSH ASDIRECTED ZULY Labs: Laboratory Tests 06/09/21 06/09/21 06/09/21 Range/Units 12:35 13:21 13:21 WBC 5.48 (3.98-10.04) K/mm3 RBC 5.22 (3.98-5.22) M/mm3 Hgb 16.2 H (11.2-15.7) gm/dl Hct 47.8 H (34.1-44.9) % MCV 91.6 (79.4-94.8) fl MCH 31.0 (25.6-32.2) pg MCHC 33.9 (32.2-35.5) g/dl RDW Std Deviation 44.5 (36.4-46.3) fL Plt Count 192 (182-369) K/mm3 MPV 11.6 (9.4-12.3) fl Neut % (Auto) 61.2 (34.0-71.1) % Lymph % (Auto) 21.7 (19.3-51.7) % [place] % (Auto) 11.1 (4.7-12.5) % Eos % (Auto) 5.3 (0.7-5.8) Baso % (Auto) 0.5 (0.1-1.2) % Neut # (Auto) 3.35 (1.56-6.13) K/mm3 Lymph # (Auto) 1.19 (1.18-3.74) K/mm3 [place] # (Auto) 0.61 H (0.24-0.36) K/mm3 Eos # (Auto) 0.29 (0.04-0.36) K/mm3 Baso # (Auto) 0.03 (0.01-0.08) K/mm3 D-Dimer, Quantitative 0.43 (0.19-0.50) mg/L Sodium (136-145) mEq/L Potassium (3.5-5.1) mEq/L Chloride (98-107) mEq/L Carbon Dioxide (21-32) mEq/L Anion Gap (5-15) BUN (7-18) mg/dL Creatinine (0.55-1.02) mg/dL Est Cr Clr Drug Dosing mL/min Estimated GFR (MDRD) (>60) mL/min BUN/Creatinine Ratio (14-18) Glucose (70-99) mg/dL Calcium (8.5-10.1) mg/dL Magnesium (1.8-2.4) mg/dL Total Bilirubin (0.2-1.0) mg/dL AST (15-37) U/L ALT (14-59) U/L Alkaline Phosphatase (46-116) U/L C-Reactive Protein (<1.0) mg/dL Total Protein (6.4-8.2) g/dl Albumin (3.4-5.0) g/dl Globulin gm/dL Albumin/Globulin Ratio (1-2) SARS-CoV-2 RNA (BENJA) Positive H (NEGATIVE) 06/09/21 Range/Units 13:21 WBC (3.98-10.04) K/mm3 RBC (3.98-5.22) M/mm3 Hgb (11.2-15.7) gm/dl Hct (34.1-44.9) % MCV (79.4-94.8) fl MCH (25.6-32.2) pg MCHC (32.2-35.5) g/dl RDW Std Deviation (36.4-46.3) fL Plt Count (182-369) K/mm3 MPV (9.4-12.3) fl Neut % (Auto) (34.0-71.1) % Lymph % (Auto) (19.3-51.7) % [place] % (Auto) (4.7-12.5) % Eos % (Auto) (0.7-5.8) Baso % (Auto) (0.1-1.2) % Neut # (Auto) (1.56-6.13) K/mm3 Lymph # (Auto) (1.18-3.74) K/mm3 [place] # (Auto) (0.24-0.36) K/mm3 Eos # (Auto) (0.04-0.36) K/mm3 Baso # (Auto) (0.01-0.08) K/mm3 D-Dimer, Quantitative (0.19-0.50) mg/L Sodium 142 (136-145) mEq/L Potassium 3.3 L (3.5-5.1) mEq/L Chloride 106 (98-107) mEq/L Carbon Dioxide 25 (21-32) mEq/L Anion Gap 14.3 (5-15) BUN 9 (7-18) mg/dL Creatinine 1.1 H (0.55-1.02) mg/dL Est Cr Clr Drug Dosing 57.52 mL/min Estimated GFR (MDRD) 52 (>60) mL/min BUN/Creatinine Ratio 8.2 L (14-18) Glucose 102 H (70-99) mg/dL Calcium 9.1 (8.5-10.1) mg/dL Magnesium 2.0 (1.8-2.4) mg/dL Total Bilirubin 0.5 (0.2-1.0) mg/dL AST 53 H (15-37) U/L ALT 62 H (14-59) U/L Alkaline Phosphatase 77 (46-116) U/L C-Reactive Protein 3.1 H* (<1.0) mg/dL Total Protein 7.7 (6.4-8.2) g/dl Albumin 3.6 (3.4-5.0) g/dl Globulin 4.1 gm/dL Albumin/Globulin Ratio 0.9 L (1-2) SARS-CoV-2 RNA (BENJA) (NEGATIVE) Meds: Medications Generic Name Dose Route Start Last Admin Trade Name Freq PRN Reason Stop Dose Admin Diphenhydramine HCl 50 mg 06/09/21 14:27 Diphenhydramine 50 Mg/Ml Sdv IVPUSH ASDIRECTED PRN hypersensitivity reaction Epinephrine HCl 0.3 mg 06/09/21 14:27 Epinephrine 1 Mg/Ml Sdv IM ASDIRECTED PRN hypersensitivity reaction Famotidine 20 mg 06/09/21 14:27 Famotidine 20 Mg/2 Ml Sdv IVPUSH ASDIRECTED PRN hypersensitivity reaction Methylprednisolone Sodium Succinate 125 mg 06/09/21 14:27 Methylprednisolone Sodium Succinate 125 Mg/2 Ml Sdv IVPUSH ASDIRECTED PRN hypersensitivity reaction Sodium Chloride 30 ml 06/09/21 14:30 Sodium Chloride 0.9% 10 Ml Syringe FLUSH ASDIRECTED ZULY Discontinued Medications Generic Name Dose Route Start Last Admin Trade Name Freq PRN Reason Stop Dose Admin Benzonatate 100 mg 06/09/21 14:27 06/09/21 15:04 Benzonatate 100 Mg Cap PO 06/09/21 14:28 100 mg ONETIME ONE Administration Bamlanivimab 700 mg/ 160 mls @ 310 mls/hr 06/09/21 14:45 06/09/21 15:14 Etesevimab 1,400 mg/ Sodium IV 06/09/21 15:15 310 mls/hr Chloride ONETIME ONE Administration Ketorolac Tromethamine 15 mg 06/09/21 14:27 06/09/21 15:00 Ketorolac 15 Mg/Ml Sdv IVPUSH 06/09/21 14:28 15 mg ONETIME ONE Administration - Re-Assessments/Exams Free Text/Narrative Re-Assessment/Exam: 06/09/21 14:25 Radiologist impression portable view of the chest: 1. Nothing acute is seen on portable chest x-ray. 06/09/21 14:26 Hemotology reveals a WBC of 5.48, hemoglobin 16.2, hematocrit 47.8, Coagulation reveals a D-dimer of 0.43 Chemistry reveals a sodium of 142, potassium 3.3, carbon dioxide 25, anion gap 14.3, BUN 9, creatinine 1.1, GFR 52, glucose 102, magnesium 2.0, AST 53, ALT 62, C-reactive protein 3.1 Serology reveals a positive Covid I spoke with the patient to provide information about Regeneron for herself. I offered her the fax sheet for patients and caregivers for Regeneron to read and review. I stated the therapy has been approved by an emergency use authorization process and has not fully been FDA reviewed or approved. I shared the potential risks from the therapy including risks/adverse reactions. I discussed there are other potential treatment options that are currently not FDA approved to treat COVID-19. Offered opportunity ask questions and all questions were answered. Patient voiced understanding and agreed to proceed with treatment for herself. 06/09/21 16:54 Patient did receive Regeneron and tolerated well. She has been observed for 1 hour after infusion. She will be discharged to home with recommendations that she isolate for 10 days total from start of symptoms. Departure - Departure Time of Disposition: 16:55 Disposition: Home, Self-Care 01 Condition: Good Clinical Impression: COVID-19 - Discharge Information Prescriptions: Benzonatate [Tessalon Perle] 100 mg PO TID PRN #12 capsule PRN Reason: Cough Referrals: Kathy Cochran, OBJECT ORIENTED DEVELOPER [Primary Care Provider] - Forms: ED Department Discharge Additional Instructions: You were seen in the emergency department today and a full evaluation was completed lab studies were essentially unremarkable however your Covid test was positive. Chest x-ray thus far does not show any pneumonia. You did receive monoclonal antibodies and as discussed should start to feel better over the next couple of days. You likely will have a cough for quite some time. I have sent a prescription for a medication called Eric Etienne to your pharmacy, [facility]. This medication can be taken up to 3 times daily for your cough. Go home and rest. Drink plenty of fluids and eat small frequent meals. You may take Tylenol 650 mg every 4 hours as needed for fever or body aches or ibuprofen 600 mg every 6-8 hours as needed for fever or body aches. You will need to isolate for 10 days time from the onset of symptoms. You can come out of isolation on Sunday, June 15, 2021. If you become severely short of breath it is strongly recommended that you return for reevaluation. Should your condition worsen or change, do not hesitate returning to the emergency de partment. Sepsis Event Note (ED) - Focused Exam Vital Signs: Vital Signs Temp Pulse Resp BP Pulse Ox 06/09/21 15:15 97.3 F 60 20 140/82 92 L 06/09/21 12:41 97.1 F 70 20 145/117 H 94 L - My Orders Last 24 Hours: My Active Orders 06/09/21 14:27 Vital Signs [RC] Q15M EPINEPHrine [Adrenalin] 0.3 mg IM ASDIRECTED PRN Famotidine [Pepcid] 20 mg IVPUSH ASDIRECTED PRN diphenhydrAMINE [Benadryl] 50 mg IVPUSH ASDIRECTED PRN methylPREDNISolone Sod Succ [Solu-MEDROL] 125 mg IVPUSH ASDIRECTED PRN 06/09/21 14:30 Sodium Chloride 0.9% [Saline Flush] 30 ml FLUSH ASDIRECTED - Assessment/Plan Last 24 Hours: My Active Orders 06/09/21 14:27 Vital Signs [RC] Q15M EPINEPHrine [Adrenalin] 0.3 mg IM ASDIRECTED PRN Famotidine [Pepcid] 20 mg IVPUSH ASDIRECTED PRN diphenhydrAMINE [Benadryl] 50 mg IVPUSH ASDIRECTED PRN methylPREDNISolone Sod Succ [Solu-MEDROL] 125 mg IVPUSH ASDIRECTED PRN 06/09/21 14:30 Sodium Chloride 0.9% [Saline Flush] 30 ml FLUSH ASDIRECTED
--- NOTE | 2021-06-09 14:11 | CR ---
Chest: Portable view of the chest was obtained. Comparison: No prior chest imaging is available. Heart size and mediastinum are normal. Lungs are clear with no acute parenchymal change. Bony structures show nothing acute. Impression: 1. Nothing acute is seen on portable chest x-ray. Diagnostic code #1
[2021-06-09] MEDS ORDERED: methylPREDNISolone Sodium Succinate 125 MG/2 ML SDV IVPUSH PRN (14:27)
[2021-06-09] MEDS ORDERED: Ketorolac 15 MG/ML SDV IVPUSH ONE (14:27)
[2021-06-09] MEDS ORDERED: Benzonatate 100 MG Cap PO ONE (14:27)
[2021-06-09] MEDS ORDERED: Famotidine 20 MG/2 ML SDV IVPUSH PRN (14:27)
[2021-06-09] MEDS ORDERED: diphenhydrAMINE 50 MG/ML SDV IVPUSH PRN (14:27)
[2021-06-09] MEDS ORDERED: EPINEPHrine 1 MG/ML SDV IM PRN (14:27)
[2021-06-09] MEDS ORDERED: Sodium Chloride 0.9% 10 ML Syringe FLUSH SCH (14:30)
[2021-06-09] MEDS ORDERED: Bamlanivimab 700 MG, ETESEVIMAB 1,400 MG in Sodium Chloride 0.9% 100 ML IV ONE (14:45)
[2021-06-09 15:17] VITALS: BP 140/82; PULSE 60
== END 2021-06-09 17:15 | disposition home or self-care (01) ==
LOC: JD.ED 12:04
DX: U07.1 COVID-19 (principal); E03.9 Hypothyroidism, unspecified; I10 Essential (primary) hypertension; E66.9 Obesity, unspecified; Z68.29 Body mass index [BMI] 29.0-29.9, adult; Z88.5 Allergy status to narcotic agent; Z79.899 Other long term (current) drug therapy; Z87.891 Personal history of nicotine dependence
CPT/HCPCS: 36415; 71045; 80053; 83735; 85025; 85379; 86140; 87635; 96374; 99285; A9270; J1885; M0245; Q0245; 99283; U0002

== ENCOUNTER 2022-04-09 11:34 | Emergency (ER) | payer BC ==
[2022-04-09 11:44] VITALS: BP 159/87; PULSE 98
[2022-04-09] MEDS ORDERED: Ketorolac 30 MG/ML SDV IVPUSH ONE (12:03)
[2022-04-09] MEDS: Sodium Chloride 0.9% 10 ML Syringe FLUSH PRN ×3 (12:19→14:27)
[2022-04-09] MEDS ORDERED: Sodium Chloride 0.9% 10 ML Syringe FLUSH ONE (13:19)
[2022-04-09] MEDS ORDERED: Iopamidol 612 MG/ML 100 ML Bottle IVPUSH ONE (13:19)
[2022-04-09] MEDS ORDERED: HYDROmorphone 0.5 MG/0.5 ML Syringe IVPUSH ONE (13:42)
== END 2022-04-09 15:30 | disposition home or self-care (01) ==
LOC: JD.ED 11:34
DX: M54.50 Low back pain, unspecified (principal); I10 Essential (primary) hypertension; F17.210 Nicotine dependence, cigarettes, uncomplicated; E66.9 Obesity, unspecified; Z68.27 Body mass index [BMI] 27.0-27.9, adult; Z88.5 Allergy status to narcotic agent; Z79.899 Other long term (current) drug therapy; Z90.49 Acquired absence of other specified parts of digestive tract; Z90.710 Acquired absence of both cervix and uterus
CPT/HCPCS: 36415; 72132; 80053; 85025; 86140; 96374; 96375; 99284; J1170; J1885; J3490; Q9967

== ENCOUNTER 2023-03-29 08:47 | Day surgery (SDC) | payer BC ==
[~2023-03-29 08:47] MED LIST: 50% Dextrose in Water 50 ML Syringe IVPUSH PRN; Dextrose 5%-0.45% NaCl 1,000 ML IV SCH; Lactated Ringers 1,000 ML IV SCH; Sodium Chloride 0.9% 10 ML Syringe FLUSH PRN; Sodium Chloride 0.9% 10 ML Syringe FLUSH SCH
[2023-03-29] MEDS ORDERED: Lidocaine 1% 6 ML ONE (09:43)
[2023-03-29] MEDS ORDERED: Propofol 200 MG/20 ML SDV ONE ×2 (09:43→10:33)
[2023-03-29] MEDS ORDERED: fentaNYL 100 MCG/2 ML SDV ONE (09:44)
[2023-03-29] MEDS ORDERED: Albuterol 0.083% 2.5 MG/3 ML Neb Soln NEB SCH (09:56)
[2023-03-29] MEDS ORDERED: Sodium Chloride 0.9% 1,000 ML ONE (10:23)
[2023-03-29 15:08] VITALS: BP 112/68; PULSE 78
== END 2023-03-29 12:48 | disposition home or self-care (01) ==
LOC: JD.SDS 08:47
PROVIDERS: ATTEND Surgery
DX: Z12.11 Encounter for screening for malignant neoplasm of colon (principal); K63.5 Polyp of colon; K57.30 Diverticulosis of large intestine without perforation or abscess without bleeding; K64.8 Other hemorrhoids; J45.909 Unspecified asthma, uncomplicated; E11.9 Type 2 diabetes mellitus without complications; G89.29 Other chronic pain; F41.8 Other specified anxiety disorders; K21.9 Gastro-esophageal reflux disease without esophagitis; I10 Essential (primary) hypertension; E78.00 Pure hypercholesterolemia, unspecified; E78.2 Mixed hyperlipidemia; Z87.891 Personal history of nicotine dependence; E03.9 Hypothyroidism, unspecified; E66.9 Obesity, unspecified; Z90.49 Acquired absence of other specified parts of digestive tract; Z83.71 Family history of colonic polyps; Z88.5 Allergy status to narcotic agent; Z79.899 Other long term (current) drug therapy; Z79.4 Long term (current) use of insulin; Z90.710 Acquired absence of both cervix and uterus; Z98.890 Other specified postprocedural states; Z80.0 Family history of malignant neoplasm of digestive organs; Z68.30 Body mass index [BMI] 30.0-30.9, adult
CPT/HCPCS: 43235; 45385; 82947; J2704; J3010; J7030; J7042; 00813; J3490; J7620-GY

== ENCOUNTER 2023-11-23 05:28 | Emergency (ER) | payer BC ==
[2023-11-23 06:28] LABS: BASOPHILS ABSOLUTE AUTO 0.1 K/mm3 (0.0-0.2); BASOPHILS PERCENT AUTO 0.9 % (0.0-1.0); EOSINOPHILS ABSOLUTE AUTO 0.4 K/mm3 (0.0-0.4); EOSINOPHILS PERCENT AUTO 3.1 % (0.0-6.0); HEMATOCRIT 48.7 % (37.0-47.0); HEMOGLOBIN 17.2 gm/dl (12.0-16.0); IMMATURE GRAN ABSOLUTE AUTO 0.03 K/mm3 (0.00-0.05); IMMATURE GRAN PERCENT AUTO 0.3 % (0.0-0.4); LYMPHOCYTES ABSOLUTE AUTO 2.4 K/mm3 (1.0-4.8); LYMPHOCYTES PERCENT AUTO 21.1 % (24.0-44.0); MEAN CORPUSCULAR HGB CONC 35.3 g/dl (32.0-36.0); MEAN CORPUSCULAR VOLUME 90.5 fl (83.0-99.0); MEAN PLATELET VOLUME 11.7 fl (9.4-12.3); MONOCYTES ABSOLUTE AUTO 0.6 K/mm3 (0.0-0.8); MONOCYTES PERCENT AUTO 5.3 % (0.0-8.0); NEUTROPHILS PERCENT AUTO 69.3 % (41.0-71.0); PLATELET COUNT,PLT 246 K/mm3 (150-400); RED BLOOD CELL COUNT 5.38 M/mm3 (4.10-5.30); WHITE BLOOD CELL COUNT,WBC 11.47 K/mm3 (3.9-11.3)
[2023-11-23] MEDS: Ketorolac 15 MG/ML SDV IVPUSH ONE (06:58)
[2023-11-23 07:02] LABS: A/G RATIO 1.1 (1-2); ALANINE AMINOTRANSFERASE,ALT 13 U/L (14-59); ALBUMIN 4.1 g/dl (3.4-5.0); ALKALINE PHOSPHATASE 60 U/L (46-116); ANION GAP 12.9 (5-15); ASPARTATE AMNIOTRANSFERASE,AST 19 U/L (15-37); BILIRUBIN TOTAL 0.7 mg/dL (0.2-1.0); BLOOD UREA NITROGEN,BUN 10 mg/dL (7-18); BUN/CREATININE RATIO 9.1 (14-18); CALCIUM 9.9 mg/dL (8.5-10.1); CARBON DIOXIDE,CO2 30 mEq/L (21-32); CHLORIDE,CL 103 mEq/L (98-107); CREATININE 1.1 mg/dL (0.55-1.02); ESTIMATED GFR 59 mL/min (>60); GLUCOSE RANDOM 85 mg/dL (70-99); LIPASE 132 U/L (16-77); POTASSIUM,K 3.9 mEq/L (3.5-5.1); SODIUM,NA 142 mEq/L (136-145)
[2023-11-23 08:08] LABS: APPEARANCE,URINE CLOUDY (Clear); BILIRUBIN,URINE 2+ (Negative); COLOR,URINE DARK YELLOW (Yellow); GLUCOSE,URINE NEGATIVE (Negative); KETONES,URINE TRACE (Negative); LEUKOCYTE ESTERASE,URINE TRACE (Negative); NITRITE,URINE POSITIVE (Negative); OCCULT BLOOD,URINE 3+ (Negative); PROTEIN,URINE 3+ (Negative)
[2023-11-23 08:39] LABS: RBC,URINE >100 /hpf (0-5); WBC,URINE 50-75 /hpf (0-5)
[2023-11-23 08:40] LABS: BACTERIA,URINE MODERATE /hpf (FEW); CALCIUM OXALATE CRYSTALS,URINE RARE; MUCUS,URINE MODERATE /hpf (FEW)
[2023-11-23 11:51] LABS: C. TRACHOMATIS BY PCR NOT DETECTED; N. GONORRHOEAE BY PCR NOT DETECTED
[2023-11-23 11:53] VITALS: BP 138/75; PULSE 95
== END 2023-11-23 11:25 | disposition home or self-care (01) ==
LOC: JD.ED 05:28
DX: N30.01 Acute cystitis with hematuria (principal); I10 Essential (primary) hypertension; E78.00 Pure hypercholesterolemia, unspecified; E03.9 Hypothyroidism, unspecified; Z79.899 Other long term (current) drug therapy; Z88.5 Allergy status to narcotic agent; Z79.51 Long term (current) use of inhaled steroids; Z79.4 Long term (current) use of insulin; Z90.710 Acquired absence of both cervix and uterus; Z90.49 Acquired absence of other specified parts of digestive tract
CPT/HCPCS: 36415; 74176; 80053; 81001; 81003; 83690; 85025; 87086; 87491; 87591; 96374; 99284; J1885